=== PATIENT | female | born 1950 | race Caucasian/White ===

== ENCOUNTER 2016-09-19 07:15 | Inpatient (IN) | payer MEDICAID ==
[~2016-09-19] VITALS: Ht 160 cm; Wt 84.4 kg
[~2016-09-19 07:15] MED LIST: ECO81 PO; LIPI20 PO; ZES5 PO
[2016-09-19 07:53] LABS: BASOPHIL % 0.9 % (0-2); PLATELET COUNT 259 x10^3mcL (130-400); RED CELL DISTRIBUTION WIDTH 13.5 % (11.5-14.5)
[2016-09-19 07:59] LABS: microscopic required? YES; urine erythrocyte 2+ (NEGATIVE)
[2016-09-19 08:08] LABS: CALCIUM 8.5 mg/dL (8.5-10.1); CARBON DIOXIDE 26.3 mmol/L (21-32); POTASSIUM SERUM 3.7 mmol/L (3.5-5.1)
[2016-09-19 08:12] LABS: BILIRUBIN TOTAL 0.5 mg/dL (0.20-1.00); TOTAL PROTEIN, SERUM 7.3 g/dL (6.4-8.2)
[2016-09-19 08:23] LABS: ALBUMIN 3.3 g/dL (3.4-5.0)
[2016-09-19 11:09] VITALS: BP 120/65
[2016-09-19 11:21] LABS: T3 TOTAL 1.01 ng/mL
[2016-09-19 11:29] VITALS: BP 120/65
[2016-09-19 11:31] LABS: CHOLESTEROL/HDL RATIO 3.4
[2016-09-19 11:39] LABS: FREE T4 1.04 ng/dL (0.76-1.46); FREE THYROXINE INDEX 1.9 ug/dL (1.4-4.5); T4(THYROXINE) 5.2 ug/dL (4.7-13.3)
[2016-09-19 17:18] VITALS: BP 110/46
[2016-09-19 20:39] VITALS: BP 125/80
[2016-09-20 05:35] VITALS: BP 105/51
[2016-09-20 06:28] LABS: BASOPHIL % 0.5 % (0-2); PLATELET COUNT 224 x10^3mcL (130-400); RED CELL DISTRIBUTION WIDTH 13.6 % (11.5-14.5)
[2016-09-20 06:31] LABS: CALCIUM 7.5 mg/dL (8.5-10.1); CARBON DIOXIDE 25.1 mmol/L (21-32); CHLORIDE SERUM 110 mmol/L (98-107); CREATININE SERUM 0.8 mg/dL (0.6-1.0); GFR1 > 60 mL/min; GLUCOSE SERUM 91 mg/dL (74-106); MAGNESIUM 2.6 mg/dL (1.8-2.4); PHOSPHOROUS 2.8 mg/dL (2.5-4.9); POTASSIUM SERUM 4.2 mmol/L (3.5-5.1); SODIUM SERUM 143 mmol/L (136-145)
[2016-09-20 09:18] VITALS: BP 113/56
[2016-09-20 17:06] VITALS: BP 146/75
[2016-09-20 21:51] VITALS: BP 123/70
[2016-09-21 06:17] LABS: BASOPHIL % 0.6 % (0-2); PLATELET COUNT 249 x10^3mcL (130-400); RED CELL DISTRIBUTION WIDTH 13.6 % (11.5-14.5)
[2016-09-21 06:22] VITALS: BP 124/54
[2016-09-21 06:43] LABS: CALCIUM 8.1 mg/dL (8.5-10.1); CARBON DIOXIDE 25.4 mmol/L (21-32); CHLORIDE SERUM 112 mmol/L (98-107); CREATININE SERUM 0.8 mg/dL (0.6-1.0); GFR1 > 60 mL/min; GLUCOSE SERUM 94 mg/dL (74-106); MAGNESIUM 2.1 mg/dL (1.8-2.4); PHOSPHOROUS 2.7 mg/dL (2.5-4.9); POTASSIUM SERUM 4.1 mmol/L (3.5-5.1); SODIUM SERUM 144 mmol/L (136-145)
[2016-09-21 09:26] VITALS: BP 133/70
[2016-09-21] MEDS ORDERED: GLU500 PO (09:34)
[2016-09-21] MEDS ORDERED: LEVAQUIN750 MG PO (09:35)
[2016-09-21] MEDS ORDERED: LAC PO (09:36)
[2016-09-21] MEDS ORDERED: FLA500 PO (09:36)
[2016-09-21] MEDS ORDERED: ACCU-CHEK1 EACH MC (09:40)
[2016-09-21] MEDS ORDERED: TEST STRIPS1 EACH MC (09:40)
[2016-09-21 09:42] VITALS: BP 133/70
[2016-09-21] MEDS ORDERED: NORCO1 TA2 PO (10:01)
== END 2016-09-21 13:45 | disposition home or self-care (01) | DRG 244 ==
LOC: ED 07:15 → MU 10:06 → DU 10:06 → MU 19:49
PROVIDERS: Emergency Medicine; Family Medicine; ADMIT Family Medicine
DX: K57.32 Diverticulitis of large intestine without perforation or abscess without bleeding (principal); E43 Unspecified severe protein-calorie malnutrition; E11.51 Type 2 diabetes mellitus with diabetic peripheral angiopathy without gangrene; I10 Essential (primary) hypertension; E87.8 Other disorders of electrolyte and fluid balance, not elsewhere classified; E83.41 Hypermagnesemia; F43.9 Reaction to severe stress, unspecified; D64.9 Anemia, unspecified; D72.829 Elevated white blood cell count, unspecified; E78.5 Hyperlipidemia, unspecified; E66.9 Obesity, unspecified; Z68.32 Body mass index [BMI] 32.0-32.9, adult; Z86.73 Personal history of transient ischemic attack (TIA), and cerebral infarction without residual deficits
CPT/HCPCS: 83880; 84439; J0696; J1885; J1956; J2405; J3490; J7030; Q0092

== ENCOUNTER 2016-10-01 08:21 | Emergency (ER) | payer MEDICAID ==
[~2016-10-01] VITALS: Ht 162.6 cm; Wt 81.6 kg
[~2016-10-01 08:21] MED LIST changes: +ACCU-CHEK1 EACH MC; +FLA500 PO; +GLU500 PO; +LAC PO; +LEVAQUIN750 MG PO; +NORCO1 TA2 PO; +TEST STRIPS1 EACH MC
[2016-10-01 10:34] LABS: BASOPHIL % 0.6 % (0-2); PLATELET COUNT 259 x10^3mcL (130-400); RED CELL DISTRIBUTION WIDTH 13.9 % (11.5-14.5)
[2016-10-01 11:40] LABS: CALCIUM 8.7 mg/dL (8.5-10.1); CARBON DIOXIDE 30.1 mmol/L (21-32); CHLORIDE SERUM 104 mmol/L (98-107); CREATININE SERUM 0.9 mg/dL (0.6-1.0); GFR1 > 60 mL/min; GLUCOSE SERUM 147 mg/dL (74-106); POTASSIUM SERUM 4.8 mmol/L (3.5-5.1); SODIUM SERUM 140 mmol/L (136-145)
[2016-10-01 11:50] LABS: ALKALINE PHOSPHATASE 67 U/L (46-116); ALT/SGPT 43 U/L (14-59); AST/SGOT 17 U/L (15-37); BILIRUBIN TOTAL 0.5 mg/dL (0.20-1.00); LIPASE 57 IU/L (73-393); TOTAL PROTEIN, SERUM 6.6 g/dL (6.4-8.2)
[2016-10-01 11:56] LABS: ALBUMIN 2.9 g/dL (3.4-5.0); AMYLASE 22 U/L (25-115)
[2016-10-01 12:23] LABS: microscopic required? YES; urine erythrocyte 3+ (NEGATIVE)
[2016-10-01 14:13] VITALS: BP 123/71
== END 2016-10-01 14:13 | disposition home or self-care (01) ==
LOC: ED 08:21
PROVIDERS: Emergency Medicine
DX: K57.92 Diverticulitis of intestine, part unspecified, without perforation or abscess without bleeding (principal); E46 Unspecified protein-calorie malnutrition; I10 Essential (primary) hypertension; E78.00 Pure hypercholesterolemia, unspecified
CPT/HCPCS: 83880; J3010; J7030; Q9967

== ENCOUNTER 2017-03-07 13:59 | Inpatient (IN) | payer MEDICAID ==
[~2017-03-07] VITALS: Ht 162.6 cm; Wt 68.3 kg
[2017-03-07] MEDS ORDERED: PRINIVIL10 MG PO (14:42)
[2017-03-07] MEDS ORDERED: REGLAN10 M1 PO (14:42)
[2017-03-07] MEDS ORDERED: OMEPRAZOLE20 M3 PO (14:42)
[2017-03-07 14:56] LABS: BASOPHIL % 1.9 % (0-2); PLATELET COUNT 286 x10^3mcL (130-400); RED CELL DISTRIBUTION WIDTH 13.5 % (11.5-14.5)
[2017-03-07 15:03] LABS: CALCIUM 8.9 mg/dL (8.5-10.1); CARBON DIOXIDE 29.5 mmol/L (21-32); CHLORIDE SERUM 105 mmol/L (98-107); CREATININE SERUM 0.9 mg/dL (0.6-1.0); GFR1 > 60 mL/min; GLUCOSE SERUM 127 mg/dL (74-106); POTASSIUM SERUM 4.4 mmol/L (3.5-5.1); SODIUM SERUM 141 mmol/L (136-145)
[2017-03-07 15:05] LABS: ALBUMIN 3.5 g/dL (3.4-5.0); ALKALINE PHOSPHATASE 86 U/L (46-116); ALT/SGPT 29 U/L (14-59); AST/SGOT 17 U/L (15-37); BILIRUBIN TOTAL 0.3 mg/dL (0.20-1.00)
[2017-03-07] MEDS ORDERED: LISINOPRIL10 MG (15:27)
[2017-03-07] MEDS ORDERED: LIPI20 (15:27)
[2017-03-07] MEDS ORDERED: METFORMIN500 M1 (15:28)
[2017-03-07 17:05] VITALS: BP 137/74
[2017-03-07 17:10] VITALS: BP 137/74
[2017-03-07 17:46] LABS: MAGNESIUM 2.3 mg/dL (1.8-2.4); PHOSPHOROUS 3.1 mg/dL (2.5-4.9)
[2017-03-07 17:52] LABS: CHOLESTEROL/HDL RATIO 7.3; T3 TOTAL 0.9 ng/mL
[2017-03-07 17:56] LABS: FREE T4 0.78 ng/dL (0.76-1.46); FREE THYROXINE INDEX 2.1 ug/dL (1.4-4.5); T4(THYROXINE) 6.3 ug/dL (4.7-13.3)
[2017-03-07 18:52] LABS: microscopic required? NO
[2017-03-07 19:03] VITALS: Ht 162.6 cm; Wt 68.3 kg
[2017-03-07 19:09] LABS: urine erythrocyte NEGATIVE (NEGATIVE)
[2017-03-07 19:26] LABS: AMPHETAMINE QUAL UR NONE DETECTED (NEG <=1000)
[2017-03-07 22:08] VITALS: BP 125/74
[2017-03-08 05:34] VITALS: BP 120/68
[2017-03-08 06:25] LABS: BASOPHIL % 0.8 % (0-2); PLATELET COUNT 226 x10^3mcL (130-400); RED CELL DISTRIBUTION WIDTH 13.4 % (11.5-14.5)
[2017-03-08 06:38] LABS: CALCIUM 8.3 mg/dL (8.5-10.1); CARBON DIOXIDE 25.2 mmol/L (21-32); CHLORIDE SERUM 109 mmol/L (98-107); CREATININE SERUM 0.8 mg/dL (0.6-1.0); GFR1 > 60 mL/min; GLUCOSE SERUM 92 mg/dL (74-106); MAGNESIUM 2.2 mg/dL (1.8-2.4); PHOSPHOROUS 3.9 mg/dL (2.5-4.9); POTASSIUM SERUM 4.1 mmol/L (3.5-5.1); SODIUM SERUM 142 mmol/L (136-145)
[2017-03-08 10:32] VITALS: BP 152/71
[2017-03-08 13:50] VITALS: BP 115/65
[2017-03-08 17:18] VITALS: BP 106/58
[2017-03-08 21:45] VITALS: BP 115/67
[2017-03-09 05:40] VITALS: BP 120/70
[2017-03-09 06:20] LABS: CALCIUM 9.1 mg/dL (8.5-10.1); CHLORIDE SERUM 107 mmol/L (98-107); CREATININE SERUM 0.9 mg/dL (0.6-1.0); GFR1 > 60 mL/min; GLUCOSE SERUM 100 mg/dL (74-106); POTASSIUM SERUM 4.6 mmol/L (3.5-5.1); SODIUM SERUM 142 mmol/L (136-145)
[2017-03-09 10:15] VITALS: BP 124/70
[2017-03-09 10:18] VITALS: BP 124/70
== END 2017-03-09 13:18 | disposition home or self-care (01) | DRG 243 ==
LOC: ED 13:59 → DU 14:47 → MU 03-08 23:36
PROVIDERS: Emergency Medicine; ADMIT Family Medicine
DX: K21.9 Gastro-esophageal reflux disease without esophagitis (principal); D68.69 Other thrombophilia; E11.59 Type 2 diabetes mellitus with other circulatory complications; R13.10 Dysphagia, unspecified; I10 Essential (primary) hypertension; E78.5 Hyperlipidemia, unspecified; E66.9 Obesity, unspecified; Z68.25 Body mass index [BMI] 25.0-25.9, adult; Z79.84 Long term (current) use of oral hypoglycemic drugs; Z86.73 Personal history of transient ischemic attack (TIA), and cerebral infarction without residual deficits
CPT/HCPCS: 83880; 84439; 85378; 90658; 92610-GN; J1650; J2270; J7030; Q0092